=== PATIENT | female | born 1935 | race Two or more races ===

== ENCOUNTER 2022-04-09 16:30 | Inpatient (IN) | payer MEDICARE, OTHER ==
[~2022-04-09] VITALS: Ht 160 cm; Wt 49.9 kg
--- NOTE | 2022-04-09 16:53 | NUR ---
URINE COLLECTED AND SENT TO LAB
--- NOTE | 2022-04-09 16:53 | NUR ---
DR ALFRED AT BEDSIDE FOR EVAL
[2022-04-09] MEDS ORDERED: CHOL12502 PO (16:58)
[2022-04-09] MEDS ORDERED: SODI454P9 PO (16:58)
[2022-04-09] MEDS ORDERED: MEMA5TAB PO (16:58)
[2022-04-09] MEDS ORDERED: EPOE200012 IJ (16:58)
[2022-04-09] MEDS ORDERED: DIVA500T2 PO (16:58)
[2022-04-09] MEDS ORDERED: DONE5TAB7 PO (16:58)
[2022-04-09] MEDS ORDERED: LORA-259 PO (16:58)
[2022-04-09] MEDS ORDERED: OMEP20CA15 PO (16:58)
[2022-04-09] MEDS ORDERED: DOCU-141 PO (16:58)
[2022-04-09] MEDS ORDERED: MIRT-121 GT (16:58)
[2022-04-09] MEDS ORDERED: MULT-439 PO (16:58)
[2022-04-09] MEDS ORDERED: ATOR20TA PO (16:58)
[2022-04-09] MEDS ORDERED: QUET25TA PO ×2 (16:58)
[2022-04-09 17:15] LABS: BASOPHILS % (AUTO) 0.4 % (0.0-2.0); EOSINOPHILS % (AUTO) 2.6 % (0.0-6.0); HEMATOCRIT 30 % (33-45); HEMOGLOBIN 9.8 g/dL (11.5-14.8); LYMPHOCYTES # (AUTO) 2.2 K/uL (0.8-4.8); LYMPHOCYTES % (AUTO) 35.4 % (20.0-44.0); MEAN CORPUSCULAR HGB CONC 33 g/dl (31.0-36.0); MEAN CORPUSCULAR VOLUME 95 fL (82-100); MONOCYTES # (AUTO) 0.6 K/uL (0.1-1.30); MONOCYTES % (AUTO) 9.1 % (2.0-12.0); NEUTROPHILS # (AUTO) 3.3 K/uL (1.8-8.9); NEUTROPHILS % (AUTO) 52.5 % (43.0-81.0); PLATELET COUNT (AUTO) 234 K/uL (150-450); RED BLOOD CELL COUNT(AUTO) 3.12 MIL/uL (4.0-5.2); WHITE BLOOD COUNT (AUTO) 6.2 K/uL (4.3-11.0)
[2022-04-09 17:32] LABS: ALANINE AMINOTRANSFERASE 38 U/L (12-78); ALBUMIN 3.7 g/dL (3.4-5.0); ALKALINE PHOSPHATASE 61 U/L (46-116); ASPARTATE AMINOTRANSFERASE 24 U/L (15-37); BILIRUBIN,DIRECT 0.1 mg/dL (0.0-0.2); BILIRUBIN,TOTAL 0.4 mg/dL (0.2-1.0); CALCIUM, SERUM 8.3 mg/dL (8.5-10.1); CARBON DIOXIDE 28 mmol/L (21-32); CHLORIDE 109 mmol/L (98-107); CREATININE 2.6 mg/dL (0.6-1.3); GLUCOSE 118 mg/dL (74-106); POTASSIUM 4.7 mmol/L (3.5-5.1); SODIUM SERUM 143 mmol/L (136-145); TOTAL PROTEIN, SERUM 6.6 g/dL (6.4-8.2); UREA NITROGEN, BLOOD 49 mg/dL (7-18)
[2022-04-09 17:34] LABS: ACETAMINOPHEN 0 ug/ml (10-30); ALCOHOL, BLOOD < 3 mg/dL (0-0)
[2022-04-09 17:49] LABS: BILIRUBIN,URINE NEGATIVE (NEGATIVE); COLOR,URINE YELLOW (YELLOW); LEUKOCYTE ESTERASE ,URINE NEGATIVE (NEGATIVE); NITRITE, URINE NEGATIVE (NEGATIVE); PROTEIN,URINE NEGATIVE (NEGATIVE); UGLUCOSE NEGATIVE (NEGATIVE); UROBILINOGEN,URINE 0.2 EU/dL (0.2)
[2022-04-09] MEDS ORDERED: IV NS 0.9% 1,000 ML BAG IV ONE (18:00)
--- NOTE | 2022-04-09 18:01 | NUR ---
GOING TO 216.A
--- NOTE | 2022-04-09 18:26 | NUR ---
REPORT GIVEN TO MINNA SEN. PT AWAITING TRANSFER TO FLOOR.
--- NOTE | 2022-04-09 18:58 | NUR ---
IV removed. Catheter intact and site benign. Pressure and 4x4 applied to site. No bleeding noted.
--- NOTE | 2022-04-09 19:15 | NUR ---
TRANSFERRED TO BED 216 IN STABLE CONDITION
[2022-04-09] MEDS ORDERED: LORAZEPAM 0.5 MG TABLET PO PRN (20:00)
[2022-04-09] MEDS ORDERED: BLOOD SUGAR DIAGNOSTIC 1 EACH STRIP IN ONE (20:00)
[2022-04-09] MEDS ORDERED: ACETAMINOPHEN 325 MG TABLET PO PRN (20:00)
[2022-04-09] MEDS ORDERED: MAGNESIUM HYDROXIDE 30 ML UDC PO PRN (20:00)
[2022-04-09] MEDS ORDERED: TEMAZEPAM 7.5 MG CAPSULE PO PRN (20:00)
[2022-04-09] MEDS ORDERED: MAG HYDROX/AL HYDROX/SIMETH 30 ML UDC PO PRN (20:00)
[2022-04-09 20:15] VITALS: BP 131/69
--- NOTE | 2022-04-09 20:40 | NUR ---
RN NOTE CALLED PATIENT'S MATI LINDSEY AT [phone] AND INFORMED ABOUT PATIENT'S ADMISSION AT [facility]. PATIENT IS A & O X 1, CONFUSED, DISORGANIZED AND VERIFIED CODE STATUS WITH MATI SINCE PATIENT HAS POLTS STATUS DNR IN HER RECORDS RECEIVED FROM [facility]. PER MATI," YES, SHE WANTS TO BE DNR, THAT'S VAIBHAV'S WISH.' MD NOTIFIED AND CODE STATUS ENTERED DNR.
[2022-04-09 20:54] VITALS: BP 131/69
--- NOTE | 2022-04-09 21:30 | NUR ---
GPS MANAGER COMMISSION NOTE ADMITTED 86 Y/O FEMALE FROM [facility] ER ORIGINALLY FROM [facility]. PATIENT IS ON 5150 HOLD FOR DTS AND GD. PER 5150 HOLD, PER 5150 HOLD, AT BED SIDE EVALUATION, PATIENT WAS SLUMMED ON THE BED AND CRYING. SHE WAS UPSET ABOUT BEING LEFT ALONE AND WANTING TO GO HOME. PATIENT'S NURSE VIDHI REPORTS, PATIENT BROKE A MIRROR IN HER ROOM REPORT SHE WANTED TO , WAS AGGRESSIVE TOWARDS STAFF AND RESIDENTS, NOT FOLLOWING DIRECTIONS, REFUSING FOOD AND MEDICATIONS. PATIENT DX WITH SCHIZOAFFECTIVE DISORDER, MAJOR DEPRESSIVE DISORDER, ANXIETY. ON DEPAKOTE AND SEROQUEL. UPON FACE TO FACE EVALUATION, PATIENT IS A & O X 1, CONFUSED, DISORGANIZED, RESTLESS AND ANXIOUS AT TIMES. FLAT AFFECT, DEPRESSED, PARANOID, STATED, " MY PUT ME IN A LOCKED PLACE, IT WAS CRAZY THERE." PATIENT IS COOPERATIVE, ABLE TO FOLLOW DIRECTIONS AT THIS TIME, BS IS 78 MG/DL. PATIENT HAD SNACK AND JUICE, TOLERATED WELL. DENIES BEING SUICIDAL AT THIS TIME.DENIES SI/HI UPON ADMISSION REDIRECTABLE AT THIS TIME. AMBULATORY BUT UNSTEADY GAIT, FALL RISK. PT EVAL ORDERED. NO ACUTE DISTRESS NOTED. NO C/O PAIN VERBALIZED AT THIS TIME. PATIENT REFUSED TO SIGN ALL ADMISSION PAPERWORK DUE TO CONFUSION. SKIN CLEAR/INTACT. PATIENT ADVISED OF HIS HOLD AND PATIENT RIGHTS BOOKLET AND PRESCRIPTION MEDICATION GUIDE GIVEN. PATIENT BELONGINGS WERE INVENTORIED FOR CONTRABAND. MRSA WAS COLLECTED IN ER. PT IS UNDER THE PSYCHIATRIC CARE OF DR. WILEY AND MEDICAL CARE OF JOSE ALANIZ. PATIENT BED IS IN LOW LOCKED POSITION, SIDE RAILS UP X 3 FOR SAFETY. BED ALARM IS ON. WILL CONTINUE TO MONITOR Q15 MINS FOR MOOD, SAFETY AND BEHAVIOR.
--- NOTE | 2022-04-09 22:40 | NUR ---
GPS RN NOTE NOTIFIED JOSE ALANIZ THAT PATIENT'S MEDICATIONS ARE READY TO BE RECONCILED.
[2022-04-09] MEDS: MEMANTINE HCL 5 MG TABLET PO SCH (23:44)
[2022-04-09] MEDS: ATORVASTATIN 10 MG TABLET PO SCH (23:44)
[2022-04-10 07:14] LABS: ALANINE AMINOTRANSFERASE 36 U/L (12-78); ALBUMIN 3.2 g/dL (3.4-5.0); ALKALINE PHOSPHATASE 45 U/L (46-116); ASPARTATE AMINOTRANSFERASE 22 U/L (15-37); BILIRUBIN,TOTAL 0.3 mg/dL (0.2-1.0); CARBON DIOXIDE 25 mmol/L (21-32); CHLORIDE 112 mmol/L (98-107); CREATININE 2.4 mg/dL (0.6-1.3); GLUCOSE 101 mg/dL (74-106); POTASSIUM 4.8 mmol/L (3.5-5.1); SODIUM SERUM 144 mmol/L (136-145); TOTAL PROTEIN, SERUM 5.7 g/dL (6.4-8.2); UREA NITROGEN, BLOOD 45 mg/dL (7-18)
[2022-04-10 07:16] LABS: CHOLESTEROL 114 mg/dL (<200); HDL CHOLESTEROL 51 mg/dL (40-60); LDL 51 mg/dL (0-99); TRIGLYCERIDES 55 mg/dL (30-150)
[2022-04-10] MEDS: PANTOPRAZOLE 40 MG TABLET.DR PO SCH (07:48)
[2022-04-10 08:00] VITALS: BP 167/66
[2022-04-10] MEDS: MEMANTINE HCL 5 MG TABLET PO SCH ×2 (08:26→17:24)
[2022-04-10] MEDS: DONEPEZIL 5 MG TABLET PO SCH (08:54)
[2022-04-10] MEDS: DOCUSATE SODIUM 100 MG CAPSULE PO SCH (08:54)
[2022-04-10] MEDS: MULTIVITAMIN/LUTEIN/MINERALS 1 TAB PO SCH (08:54)
--- NOTE | 2022-04-10 09:39 | NUR ---
RN-CO: PATIENT DENIED PAIN AND DISCOMFORTS, BUT SHE IS RESTLESS AND PREOCCUPIED. SHE IS COMPLIANT WITH MEDICATIONS AND TREATMENT.
--- NOTE | 2022-04-10 13:30 | NUR ---
RN-CO; Patient is calm and resting, asleep in her bed at this time. No need for Ativan.
[2022-04-10 16:00] VITALS: BP 143/60
[2022-04-10] MEDS ORDERED: DIVALPROEX SODIUM 250 MG TABLET.DR PO SCH (17:00)
[2022-04-10 20:34] VITALS: BP 147/61
[2022-04-10] MEDS: ATORVASTATIN 10 MG TABLET PO SCH (21:10)
--- NOTE | 2022-04-10 21:55 | NUR ---
RN note: Patient calm and quiet,pleasant upon approach but refused skin assessment.
[2022-04-11] MEDS: PANTOPRAZOLE 40 MG TABLET.DR PO SCH (07:47)
[2022-04-11 08:00] VITALS: BP 160/68
[2022-04-11] MEDS: DONEPEZIL 5 MG TABLET PO SCH (08:08)
[2022-04-11] MEDS: MEMANTINE HCL 5 MG TABLET PO SCH ×2 (08:08→16:27)
[2022-04-11] MEDS: DOCUSATE SODIUM 100 MG CAPSULE PO SCH (08:08)
[2022-04-11] MEDS: MULTIVITAMIN/LUTEIN/MINERALS 1 TAB PO SCH (09:04)
--- NOTE | 2022-04-11 09:53 | NUR ---
RN-CO:Received patient awake,confused ,disorganized thought process.No s/s of acute distress noted.Will continue to monitor q15 min rounds for safety.Patient is compliant with medications and treatment but isolative. I will continue to monitor and anticipate needs.
--- NOTE | 2022-04-11 10:07 | NUR ---
RN-CO> DR MISTRY MADE AWARE THAT WE NEEDS MED CONSENT FOR DEPAKOTE. AWAITING TO FAX THE CONSENT.
--- NOTE | 2022-04-11 11:19 | NUR ---
AVERY Clinical Note: Pt placed on a 5150 hold for danger to herself and GD. Per hold, pt has been aggressive at her facility. Pt currently resides at [address] [address]; ([phone]). AVERY spoke with doron Trevino from [facility] who stated pt is welcomed back upon dc.
--- NOTE | 2022-04-11 11:19 | NUR ---
AVERY Initial Discharge Note: Pt currently resides at [facility] [address] [place] [address]; ([phone]). AVERY spoke with doron Trevino from [facility] who stated pt is welcomed back upon dc. AVERY will work with the family, pt, and doctor to help coordinate appropriate discharge.
--- NOTE | 2022-04-11 11:20 | NUR ---
Treatment Plan: Pt refused to sign treatment plan and appeared suspicious.
[2022-04-11] MEDS: DIVALPROEX SODIUM 250 MG TABLET.DR PO SCH ×2 (13:02→20:33)
--- NOTE | 2022-04-11 13:11 | NUR ---
RN-CO: PATIENT IS AGITATED WHENEVER SHE REMEMBERS HOE THE STAFF FROM SNF TREATED HER. SHE STATED " I THINK THEY WANT TO POISON ME." "I DON'T WANT TO GO BACK THERE." SHE REMAINS COMPLIANT WITH MEDICATIONS WHILE IN THE UNIT.REASSURANCE WAS GIVEN.
[2022-04-11 16:00] VITALS: BP 156/79
[2022-04-11] MEDS ORDERED: DIVALPROEX SODIUM 250 MG TABLET.DR PO SCH (17:00)
[2022-04-11] MEDS: risperiDONE 0.25 MG TABLET PO SCH (20:33)
[2022-04-11 20:49] VITALS: BP 151/57
[2022-04-11] MEDS: ATORVASTATIN 10 MG TABLET PO SCH (21:00)
[2022-04-12 08:00] VITALS: BP 135/59
[2022-04-12] MEDS: PANTOPRAZOLE 40 MG TABLET.DR PO SCH (08:21)
[2022-04-12] MEDS ORDERED: IV NS 0.9% 1,000 ML IV ONE ×4 (09:00)
[2022-04-12] MEDS: DIVALPROEX SODIUM 250 MG TABLET.DR PO SCH ×2 (09:23→20:36)
[2022-04-12] MEDS: DONEPEZIL 5 MG TABLET PO SCH (09:23)
[2022-04-12] MEDS: DOCUSATE SODIUM 100 MG CAPSULE PO SCH (09:23)
[2022-04-12] MEDS: MULTIVITAMIN/LUTEIN/MINERALS 1 TAB PO SCH (09:24)
[2022-04-12] MEDS: MEMANTINE HCL 5 MG TABLET PO SCH ×2 (09:24→17:44)
[2022-04-12 11:03] LABS: CALCIUM, SERUM 8.8 mg/dL (8.5-10.1); CARBON DIOXIDE 27 mmol/L (21-32); CHLORIDE 108 mmol/L (98-107); CREATININE 2.4 mg/dL (0.6-1.3); GLUCOSE 137 mg/dL (74-106); POTASSIUM 4.7 mmol/L (3.5-5.1); SODIUM SERUM 142 mmol/L (136-145); UREA NITROGEN, BLOOD 39 mg/dL (7-18)
[2022-04-12] MEDS ORDERED: EPOETIN ALFA (20,000 UNIT) 20,000 UNIT/ML VIAL SQ SCH (15:00)
[2022-04-12 16:00] VITALS: BP_SYST 144; BP_SYST 98; BP_DIAS 55; BP_DIAS 64
[2022-04-12 20:06] VITALS: BP 157/69
[2022-04-12] MEDS: risperiDONE 0.25 MG TABLET PO SCH (20:36)
[2022-04-12] MEDS: ATORVASTATIN 10 MG TABLET PO SCH (21:02)
--- NOTE | 2022-04-13 07:15 | NUR ---
GPS RN NOTES RECEIVED PT RESTING IN BED, NO S/S OF SOB OR DISTRESS NOTED. PATIENT A/Ox3, ABLE TO MAKE NEEDS KNOWN. WILL ENCOURAGE VERBALIZATION OF FEELINGS. SAFETY PRECAUTIONS MAINTAINED. WILL CONTINUE TO MONITOR THROUGHOUT SHIFT.
[2022-04-13 08:00] VITALS: BP 117/63
[2022-04-13] MEDS: PANTOPRAZOLE 40 MG TABLET.DR PO SCH (08:14)
[2022-04-13] MEDS: MULTIVITAMIN/LUTEIN/MINERALS 1 TAB PO SCH (08:14)
[2022-04-13] MEDS: MEMANTINE HCL 5 MG TABLET PO SCH ×2 (08:14→16:33)
[2022-04-13] MEDS: DOCUSATE SODIUM 100 MG CAPSULE PO SCH (08:14)
[2022-04-13] MEDS: DONEPEZIL 5 MG TABLET PO SCH (08:14)
[2022-04-13] MEDS: DIVALPROEX SODIUM 250 MG TABLET.DR PO SCH ×3 (08:14→21:15)
[2022-04-13 15:10] LABS: CALCIUM, SERUM 8.7 mg/dL (8.5-10.1); CARBON DIOXIDE 27 mmol/L (21-32); CHLORIDE 107 mmol/L (98-107); CREATININE 2.4 mg/dL (0.6-1.3); GLUCOSE 124 mg/dL (74-106); SODIUM SERUM 140 mmol/L (136-145); UREA NITROGEN, BLOOD 37 mg/dL (7-18)
[2022-04-13 16:00] VITALS: BP 151/61
--- NOTE | 2022-04-13 19:03 | NUR ---
RN NOTES PATIENT BECAME VERY ANXIOUS AND AGITATED, TRYING TO OPEN DOOR. PRN ATIVAN ADMINISTERED, PATIENT WANTED TO SEE HER BELONGINGS AND MAKE SURE THAT IT WAS SAFE. PATIENT WAS SHOWED HER BELONGINGS BEFORE LOCKING THEM IN HER CLOSET.
[2022-04-13 20:00] VITALS: BP 124/71
[2022-04-13] MEDS: ATORVASTATIN 10 MG TABLET PO SCH (21:13)
[2022-04-13] MEDS: risperiDONE 0.25 MG TABLET PO SCH (21:15)
[2022-04-14 07:01] LABS: BASOPHILS % (AUTO) 0.2 % (0.0-2.0); EOSINOPHILS % (AUTO) 1.6 % (0.0-6.0); HEMATOCRIT 28 % (33-45); HEMOGLOBIN 9.3 g/dL (11.5-14.8); LYMPHOCYTES # (AUTO) 1.8 K/uL (0.8-4.8); LYMPHOCYTES % (AUTO) 27.6 % (20.0-44.0); MEAN CORPUSCULAR HGB CONC 33 g/dl (31.0-36.0); MEAN CORPUSCULAR VOLUME 94 fL (82-100); MONOCYTES # (AUTO) 0.8 K/uL (0.1-1.30); MONOCYTES % (AUTO) 11.6 % (2.0-12.0); NEUTROPHILS # (AUTO) 3.9 K/uL (1.8-8.9); PLATELET COUNT (AUTO) 217 K/uL (150-450); RED BLOOD CELL COUNT(AUTO) 2.95 MIL/uL (4.0-5.2); WHITE BLOOD COUNT (AUTO) 6.7 K/uL (4.3-11.0)
[2022-04-14 07:33] LABS: ALBUMIN 3.2 g/dL (3.4-5.0); BILIRUBIN,DIRECT 0.1 mg/dL (0.0-0.2); BILIRUBIN,TOTAL 0.5 mg/dL (0.2-1.0); TOTAL PROTEIN, SERUM 6.3 g/dL (6.4-8.2)
[2022-04-14 08:00] VITALS: BP 130/70
[2022-04-14] MEDS: MULTIVITAMIN/LUTEIN/MINERALS 1 TAB PO SCH (08:21)
[2022-04-14] MEDS: DONEPEZIL 5 MG TABLET PO SCH (08:21)
[2022-04-14] MEDS: MEMANTINE HCL 5 MG TABLET PO SCH ×2 (08:22→17:16)
[2022-04-14] MEDS: DIVALPROEX SODIUM 250 MG TABLET.DR PO SCH ×3 (08:22→21:05)
[2022-04-14] MEDS: DOCUSATE SODIUM 100 MG CAPSULE PO SCH (08:23)
[2022-04-14] MEDS: PANTOPRAZOLE 40 MG TABLET.DR PO SCH (08:23)
--- NOTE | 2022-04-14 09:00 | NUR ---
RN NOTE- PT IN BED AWAKE CONFUSED NEEDS CONSTANT ASSIST AND REDIRECTION. PO INTAKE FAIR, MED COMPLIANT
--- NOTE | 2022-04-14 12:34 | NUR ---
Court Notification: SW attempted contact pt's sister Audelia ([phone]) and was unable to leave a voicemail.
--- NOTE | 2022-04-14 13:11 | NUR ---
Court Hearing: Patient's court hearing for 1720 was today and it was upheld for GD.
[2022-04-14 16:00] VITALS: BP 143/61
[2022-04-14 20:00] VITALS: BP 127/73
[2022-04-14 20:10] VITALS: BP 127/73
[2022-04-14] MEDS: ATORVASTATIN 10 MG TABLET PO SCH (21:18)
[2022-04-14] MEDS: risperiDONE 0.25 MG TABLET PO SCH (21:32)
--- NOTE | 2022-04-14 22:00 | NUR ---
PATIENT HAD PUDDING, 2 APPLE JUICE AND HALF A EGG SALAD SANDWICH AND TOLERATED WELL.
--- NOTE | 2022-04-15 07:10 | NUR ---
RN NOTE: PATIENT SLEPT WELL AT NIGHT, NO ACUTE CHANGES NOTED THROUGH OUT THE NIGHT. PATIENT REMAINED CALM AND COOPERATIVE BUT ISOLATIVE/WITHDRAWN. WILL ENDORSE TO AM RN.
[2022-04-15 08:00] VITALS: BP 140/68
[2022-04-15] MEDS: MEMANTINE HCL 5 MG TABLET PO SCH ×2 (08:54→17:31)
[2022-04-15] MEDS: PANTOPRAZOLE 40 MG TABLET.DR PO SCH (08:54)
[2022-04-15] MEDS: DOCUSATE SODIUM 100 MG CAPSULE PO SCH (08:54)
[2022-04-15] MEDS: MULTIVITAMIN/LUTEIN/MINERALS 1 TAB PO SCH (08:54)
[2022-04-15] MEDS: DONEPEZIL 5 MG TABLET PO SCH (08:54)
[2022-04-15] MEDS: DIVALPROEX SODIUM 250 MG TABLET.DR PO SCH ×3 (08:54→21:23)
[2022-04-15 16:00] VITALS: BP 148/61
--- NOTE | 2022-04-15 20:56 | NUR ---
RN NOTES: PATIENT RESTING IN ROOM. NO S/SX OF ACUTE DISTRESS NOTED, EASILY AGITATED, DISORGANIZED,FORGETFUL,GUARDED, ISOLATIVE. ENCOURAGED TO VERBALIZE ANY FEELING OR CONCERN AND ENCOURAGED TO PARTICIPATE IN THE GROUP ACTIVITIES,DENIES SI/HI AT THIS TIME. SAFETY MEASURES IN PLACE. WILL CONTINUE TO MONITOR Q15MIN ROUNDS FOR SAFETY AND BEHAVIOR.
[2022-04-15 21:02] VITALS: BP 144/61
[2022-04-15] MEDS: risperiDONE 0.25 MG TABLET PO SCH (21:23)
[2022-04-15] MEDS: ATORVASTATIN 10 MG TABLET PO SCH (21:23)
[2022-04-16 08:00] VITALS: BP 140/69
[2022-04-16] MEDS: DOCUSATE SODIUM 100 MG CAPSULE PO SCH (08:19)
[2022-04-16] MEDS: MULTIVITAMIN/LUTEIN/MINERALS 1 TAB PO SCH (08:19)
[2022-04-16] MEDS: DONEPEZIL 5 MG TABLET PO SCH (08:19)
[2022-04-16] MEDS: DIVALPROEX SODIUM 250 MG TABLET.DR PO SCH ×3 (08:19→21:06)
[2022-04-16] MEDS: MEMANTINE HCL 5 MG TABLET PO SCH ×2 (08:19→16:52)
[2022-04-16] MEDS: PANTOPRAZOLE 40 MG TABLET.DR PO SCH (08:19)
[2022-04-16 16:00] VITALS: BP 132/79
[2022-04-16 20:41] VITALS: BP 141/68
[2022-04-16] MEDS: ATORVASTATIN 10 MG TABLET PO SCH (21:06)
[2022-04-16] MEDS: risperiDONE 0.25 MG TABLET PO SCH (21:06)
[2022-04-16 22:06] LABS: CALCIUM, SERUM 8.5 mg/dL (8.5-10.1); CARBON DIOXIDE 29 mmol/L (21-32); CHLORIDE 107 mmol/L (98-107); CREATININE 2.5 mg/dL (0.6-1.3); GLUCOSE 147 mg/dL (74-106); POTASSIUM 4.6 mmol/L (3.5-5.1); SODIUM SERUM 143 mmol/L (136-145); UREA NITROGEN, BLOOD 38 mg/dL (7-18)
[2022-04-17 08:00] VITALS: BP 147/62
[2022-04-17] MEDS: DONEPEZIL 5 MG TABLET PO SCH (08:08)
[2022-04-17] MEDS: MULTIVITAMIN/LUTEIN/MINERALS 1 TAB PO SCH (08:08)
[2022-04-17] MEDS: DOCUSATE SODIUM 100 MG CAPSULE PO SCH (08:08)
[2022-04-17] MEDS: PANTOPRAZOLE 40 MG TABLET.DR PO SCH (08:08)
[2022-04-17] MEDS: DIVALPROEX SODIUM 250 MG TABLET.DR PO SCH ×3 (08:09→20:52)
[2022-04-17] MEDS: MEMANTINE HCL 5 MG TABLET PO SCH ×2 (08:09→17:31)
[2022-04-17 16:00] VITALS: BP 140/70
--- NOTE | 2022-04-17 19:15 | NUR ---
GPS RN NOTES PATIENT IN HER ROOM RESTING COMFORTABLY. A/OX1. NO S/SX OF ACUTE DISTRESS NOTED. PATIENT REMAINS ANXIOUS, DISORGANIZED, CONFUSED, REDIRECTABLE. SAFETY PRECAUTIONS MAINTAINED. WILL CONTINUE TO MONITOR Q15MIN ROUNDS FOR SAFETY AND BEHAVIOR.
[2022-04-17 20:08] VITALS: BP 156/68
[2022-04-17] MEDS: risperiDONE 0.25 MG TABLET PO SCH (20:52)
[2022-04-17] MEDS: ATORVASTATIN 10 MG TABLET PO SCH (21:05)
[2022-04-18] MEDS: DIVALPROEX SODIUM 250 MG TABLET.DR PO SCH ×3 (07:45→20:46)
[2022-04-18] MEDS: PANTOPRAZOLE 40 MG TABLET.DR PO SCH (07:45)
[2022-04-18 08:00] VITALS: BP 137/86
--- NOTE | 2022-04-18 09:00 | NUR ---
NURSE NOTE: PT IN HER ROOM RESTING COMFORTABLY. ALERT.ORIENTED X1. NO SIGNS OF DISTRESS NOTED. PT IS ANXIOUS, DISORGANIZED, CONFUSED, IS REDIRECTABLE. ENCOURAGED TO JOIN GROUP ACTIVITY. NO RESPIRATORY DISTRESS NOTED AT THSI TIME. SAFETY PRECAUTIONS CONT. WILL CONTINUE TO MONITOR FOR SAFETY AND BEHAVIOR.
[2022-04-18] MEDS: MULTIVITAMIN/LUTEIN/MINERALS 1 TAB PO SCH (09:32)
[2022-04-18] MEDS: MEMANTINE HCL 5 MG TABLET PO SCH ×2 (09:33→17:19)
[2022-04-18] MEDS: DOCUSATE SODIUM 100 MG CAPSULE PO SCH (09:33)
[2022-04-18] MEDS: DONEPEZIL 5 MG TABLET PO SCH (09:34)
[2022-04-18 16:00] VITALS: BP 156/65
[2022-04-18 20:05] VITALS: BP 156/89
[2022-04-18] MEDS ORDERED: risperiDONE 0.25 MG TABLET PO SCH (21:00)
[2022-04-18] MEDS: ATORVASTATIN 10 MG TABLET PO SCH (21:07)
[2022-04-19 06:30] LABS: BASOPHILS # (AUTO) 0.1 K/uL (0.0-0.2); BASOPHILS % (AUTO) 0.6 % (0.0-2.0); EOSINOPHILS % (AUTO) 1.6 % (0.0-6.0); HEMATOCRIT 33 % (33-45); LYMPHOCYTES % (AUTO) 21.2 % (20.0-44.0); MEAN CORPUSCULAR HGB CONC 33 g/dl (31.0-36.0); MEAN CORPUSCULAR VOLUME 93 fL (82-100); MONOCYTES # (AUTO) 0.9 K/uL (0.1-1.30); MONOCYTES % (AUTO) 10.1 % (2.0-12.0); NEUTROPHILS # (AUTO) 6.3 K/uL (1.8-8.9); NEUTROPHILS % (AUTO) 66.5 % (43.0-81.0); PLATELET COUNT (AUTO) 296 K/uL (150-450); RED BLOOD CELL COUNT(AUTO) 3.56 MIL/uL (4.0-5.2); WHITE BLOOD COUNT (AUTO) 9.4 K/uL (4.3-11.0)
[2022-04-19 07:19] LABS: ALANINE AMINOTRANSFERASE 23 U/L (12-78); ALBUMIN 3.6 g/dL (3.4-5.0); ALKALINE PHOSPHATASE 49 U/L (46-116); ASPARTATE AMINOTRANSFERASE 16 U/L (15-37); BILIRUBIN,TOTAL 0.6 mg/dL (0.2-1.0); CALCIUM, SERUM 8.8 mg/dL (8.5-10.1); CARBON DIOXIDE 28 mmol/L (21-32); CHLORIDE 108 mmol/L (98-107); CREATININE 2.5 mg/dL (0.6-1.3); GLUCOSE 103 mg/dL (74-106); POTASSIUM 4.7 mmol/L (3.5-5.1); SODIUM SERUM 143 mmol/L (136-145); TOTAL PROTEIN, SERUM 6.6 g/dL (6.4-8.2); UREA NITROGEN, BLOOD 43 mg/dL (7-18)
[2022-04-19 07:31] LABS: VALPROIC ACID 42 ug/mL (50-100)
[2022-04-19 08:00] VITALS: BP 112/37
[2022-04-19] MEDS: PANTOPRAZOLE 40 MG TABLET.DR PO SCH (08:19)
[2022-04-19] MEDS: DIVALPROEX SODIUM 250 MG TABLET.DR PO SCH ×3 (08:19→20:37)
[2022-04-19] MEDS: DOCUSATE SODIUM 100 MG CAPSULE PO SCH (08:53)
[2022-04-19] MEDS: DONEPEZIL 5 MG TABLET PO SCH (08:53)
[2022-04-19] MEDS: MULTIVITAMIN/LUTEIN/MINERALS 1 TAB PO SCH (08:53)
[2022-04-19] MEDS: MEMANTINE HCL 5 MG TABLET PO SCH ×2 (08:53→17:43)
[2022-04-19 16:00] VITALS: BP 142/69
[2022-04-19 20:10] VITALS: BP 148/73
[2022-04-19] MEDS: risperiDONE 1 MG TABLET PO SCH (20:38)
[2022-04-19] MEDS: ATORVASTATIN 10 MG TABLET PO SCH (21:19)
--- NOTE | 2022-04-20 06:18 | NUR ---
RN note: Notified button tufting machine operator BRAILLE OPERATOR Esteban Holguin for BUN 43 and creatine 2.5 ;awaiting order.
--- NOTE | 2022-04-20 07:30 | NUR ---
RN OPENING NOTE PATIENT IS IN BED AWAKE, ALERT AND ORIENTED X 1. PATIENT IS ON ROOM AIR, BREATHING UNLABORED AND NOT IN ANY FORM OF DISTRESS. DENIES SUICIDAL IDEATION. ALL HOSPITAL SAFETY PRECAUTIONS IN PLACE. WILL CONTINUE TO MONITOR.
[2022-04-20 08:00] VITALS: BP 121/58
[2022-04-20] MEDS: PANTOPRAZOLE 40 MG TABLET.DR PO SCH (08:23)
[2022-04-20] MEDS: DONEPEZIL 5 MG TABLET PO SCH (08:23)
[2022-04-20] MEDS: MEMANTINE HCL 5 MG TABLET PO SCH ×2 (08:23→16:50)
[2022-04-20] MEDS: MULTIVITAMIN/LUTEIN/MINERALS 1 TAB PO SCH (08:23)
[2022-04-20] MEDS: DOCUSATE SODIUM 100 MG CAPSULE PO SCH (08:23)
[2022-04-20] MEDS: DIVALPROEX SODIUM 250 MG TABLET.DR PO SCH ×3 (08:23→20:59)
[2022-04-20] MEDS ORDERED: FIXODENT DENTURE ADHESIVE CREAM TUBE MM PRN (15:00)
[2022-04-20 16:00] VITALS: BP 115/54
[2022-04-20] MEDS: risperiDONE 0.25 MG TABLET PO SCH (16:50)
[2022-04-20 17:43] LABS: CALCIUM, SERUM 8.3 mg/dL (8.5-10.1); CARBON DIOXIDE 28 mmol/L (21-32); CHLORIDE 100 mmol/L (98-107); CREATININE 2.7 mg/dL (0.6-1.3); GLUCOSE 161 mg/dL (74-106); POTASSIUM 4.7 mmol/L (3.5-5.1); SODIUM SERUM 132 mmol/L (136-145); UREA NITROGEN, BLOOD 45 mg/dL (7-18)
--- NOTE | 2022-04-20 18:35 | NUR ---
RN CLOSING NOTE PATIENT REMAINS STABLE THROUGHOUT SHIFT. PATIENT CONTINUES TO BE WITHDRAWN AND ISOLATIVE AND PREOCCUPIED WITH HER DENTURES. ALL HOSPITAL SAFETY PRECAUTIONS IN PLACE. WILL ENDORSE TO LOADER UNLOADER NURSE.
[2022-04-20 20:00] VITALS: BP 132/75
--- NOTE | 2022-04-20 20:50 | NUR ---
COVID SPECIMEN COLLECTED AND SENT TO LAB.
[2022-04-20] MEDS: risperiDONE 1 MG TABLET PO SCH (21:22)
[2022-04-20] MEDS: ATORVASTATIN 10 MG TABLET PO SCH (21:23)
--- NOTE | 2022-04-21 07:56 | NUR ---
SW Discharge Note: Patient will be discharged to nursing home facility [facility] [address] [place] [address]; ([phone]). Please arrange transportation at 1PM. Tamping Machine Operator [employer] Forms spoke with Uriel sal at [facility] ([phone]) who stated patient will be accepted at facility today. Patients is aware and agreeable. Patient is alert and oriented x2 and is not able to plan for self-care at this time but is willing to accept care provided for her at the facility. Patient denies suicidal or homicidal ideation. Patients sister Audelia ([phone]) is aware and agreeable with discharge plans. Patient will follow-up with (Psychiatrist) Dr. Westbrook [address], [place] [address]; ([phone]) and [employer] Field Supervisor Dr. Rose [address], [place] [address]; ([phone]). Patient presents with euthymic mood and congruent affect.
[2022-04-21 08:00] VITALS: BP 135/69
[2022-04-21] MEDS: DONEPEZIL 5 MG TABLET PO SCH (08:58)
[2022-04-21] MEDS: MEMANTINE HCL 5 MG TABLET PO SCH (08:58)
[2022-04-21] MEDS: DOCUSATE SODIUM 100 MG CAPSULE PO SCH (08:58)
[2022-04-21] MEDS: PANTOPRAZOLE 40 MG TABLET.DR PO SCH (08:58)
[2022-04-21] MEDS: MULTIVITAMIN/LUTEIN/MINERALS 1 TAB PO SCH (08:58)
[2022-04-21] MEDS: risperiDONE 0.25 MG TABLET PO SCH (08:58)
[2022-04-21] MEDS: DIVALPROEX SODIUM 250 MG TABLET.DR PO SCH ×2 (08:59→12:36)
--- NOTE | 2022-04-21 09:42 | NUR ---
Dr. Westbrook gave an order to D/C hold and D/C to [facility] and to follow up with psych and medical doctors. Dr. Westbrook ordered to continue same meds including prn.
--- NOTE | 2022-04-21 13:20 | NUR ---
EAP COUNSELOR NOTES PATIENT DISCHARGE AT THIS TIME GOING BACK TO THE [facility]. PATIENT A/O X2/3 REDIRECTABLE, AMBULATORY, ROOM AIR, MINIMAL ASSIST FOR SELF CARE, REFUSED PAIN. MED RECONCILIATION, AND DISCHARGE ORDER REVIEWED, AND EXPLAINED TO THE PATIENT AND SNF RN YVONNE. RN VERBALIZED UNDERSTANDING. BELONGING CHECKED, AND GIVEN BACK TO THE PATIENT. PATIENT SIGN PAPERWORK. PATIENT REFUSED SI/HI/AVH AT THIS TIME. PATIENT RIG MECHANIC VIA AMBULANCE. SISTER AWARE OF D/C PLANING. PATIENT WILL FOLLOW UP WITH SNF SERVICE DESK MANAGER, AND PSYCHIATRIST.
== END 2022-04-21 13:20 | DRG 885 ==
LOC: ER 16:43 → GPS 18:36
PROVIDERS: ADMIT Psychiatry & Neurology Psychiatry; ATTEND Nurse Practitioner Acute Care
DX: F25.0 Schizoaffective disorder, bipolar type (principal); F01.51 Vascular dementia, unspecified severity, with behavioral disturbance; N18.9 Chronic kidney disease, unspecified; N17.0 Acute kidney failure with tubular necrosis; R45.851 Suicidal ideations; F02.81 Dementia in other diseases classified elsewhere, unspecified severity, with behavioral disturbance; F29 Unspecified psychosis not due to a substance or known physiological condition; F41.9 Anxiety disorder, unspecified; Z20.822 Contact with and (suspected) exposure to COVID-19; E11.22 Type 2 diabetes mellitus with diabetic chronic kidney disease; E78.5 Hyperlipidemia, unspecified; E88.09 Other disorders of plasma-protein metabolism, not elsewhere classified; F32.9 Major depressive disorder, single episode, unspecified; I12.9 Hypertensive chronic kidney disease with stage 1 through stage 4 chronic kidney disease, or unspecified chronic kidney disease; J44.9 Chronic obstructive pulmonary disease, unspecified; I48.91 Unspecified atrial fibrillation; K21.9 Gastro-esophageal reflux disease without esophagitis; Z82.3 Family history of stroke; Z86.73 Personal history of transient ischemic attack (TIA), and cerebral infarction without residual deficits
CPT/HCPCS: 36415; 76770-TC; 80048-TC; 80053-TC; 80061-TC; 80076-TC; 80164-TC; 82962-TC; 85025-TC; 87081-TC; 97116-TC; 97530-TC; C9803; G0480; J0885; J7030